=== PATIENT | male | born 1950 | race Caucasian/White ===

== ENCOUNTER 2016-05-16 08:16 | Observation (INO) | payer MEDICARE ==
[2016-05-16] MEDS: traMADol HCl 50 MG TAB PO PRN ×2 (10:24→19:18)
[2016-05-16 13:41] VITALS: BMI 26.0
[2016-05-16 15:04] LABS: #Basophils 0.1 thou/uL (0.0-0.2); #Eosinphils 0.1 thou/uL (0.0-0.7); #Lymphocytes 1.4 thou/uL (1.20-3.40); #Monocytes 1.4 thou/uL (0.11-0.59); #Neutrophils 9.8 thou/uL (1.40-6.50); %Basophils 0.5 % (0.0-1.0); %Eosinophils 1.1 % (0.0-10.0); %Lymphocytes 10.6 % (21.0-51.0); %Neutrophils 76.8 % (42.0-75.0); Hemoglobin 7.3 g/dL (14.0-18.0); Mean Corpuscular Hemoglobin 28.7 pg (27.0-31.0); Mean Corpuscular Volume 92.6 fl (80.0-94.0); Mean Platelet Volume 5.7 fL (7.4-10.4); Platelet Count 359 thou/uL (130-400); RBC Distribution Width 16.2 % (11.5-14.5); Red Blood Cell (RBC) Count 2.54 mill/uL (4.70-6.10); White Blood Cell (WBC) Count 12.8 thou/uL (4.8-10.8)
[2016-05-16] MEDS ORDERED: Furosemide 20 MG/2 ML VIAL ONE (17:25)
--- NOTE | 2016-05-16 17:56 | RAD ---
CHEST ONE VIEW 05/16/16 HISTORY: Patient has diminished breath sounds on the right per acute care nurse. COMPARISON: Chest one view 04/24/16. FINDINGS: There is some opacities in the right mid and lower lung although incompletely evaluated on this exam ination. Right costophrenic sulcus is not well evaluated. A port catheter is in place with tip poorl y seen although likely sits at the inferior SVC. Mild blunting of the left lateral costophrenic sulcus. IMPRESSION: 1. Right basilar opacities incompletely evaluated on this exam. Recommend repeat upright two vi ews after patient's transfusion. 2. Mild blunting of the left lateral costophrenic sulcus likely small effusion. Again, this lucia uld be further evaluated on an upright two view chest. 3. Evidence of prior trauma to the bilateral clavicles. POS: [facility]
[2016-05-16] MEDS ORDERED: Furosemide 20 MG/2 ML VIAL SLOW IVP SCH (18:30)
[2016-05-16 20:14] LABS: Mean Corpuscular HGB CONC 31.6 g/dL (32.0-36.0); Mean Corpuscular Hemoglobin 29.2 pg (27.0-31.0); Mean Corpuscular Volume 92.3 fl (80.0-94.0); Mean Platelet Volume 5.7 fL (7.4-10.4); Platelet Count 317 thou/uL (130-400); Red Blood Cell (RBC) Count 2.71 mill/uL (4.70-6.10); White Blood Cell (WBC) Count 13.6 thou/uL (4.8-10.8)
[2016-05-16 20:16] LABS: Hemoglobin 7.9 g/dL (14.0-18.0)
[2016-05-16] MEDS ORDERED: Mirtazapine 30 MG TAB PO SCH (21:00)
[2016-05-16] MEDS: Acetaminophen 325 MG TAB PO PRN (21:15)
[2016-05-16 21:29] LABS: Anion Gap 14 mmol/L (10-20); BUN (Urea Nitrogen) 8 mg/dL (8.4-25.7); Calc. Creatinine Clearance 154 mL/min (70-130); Calcium 7.7 mg/dL (7.8-10.44); Carbon Dioxide 17 mmol/L (23-31); Chloride 108 mmol/L (98-107); Estimated GFR-MDRD Greater than 90; Glucose 117 mg/dL (80-115); Potassium 3.6 mmol/L (3.5-5.1); Sodium 135 mmol/L (136-145)
--- NOTE | 2016-05-17 01:12 | HP ---
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 He has been discharged home with instructions to improve his weight and strength prior to jimmy motherapy. He has had a history of diabetes for years, controlled with metformin and hypertension c ontrolled with amlodipine and lovastatin, but now is on no medications except for tramadol, not eati ng well and very weak and unable to hardly get around the house, had routine laboratories done which showed him to have a hemoglobin down to 6.9 with a BUN of 8, creatinine 0.65. Had elevated liver f unctions with an AST of 58, ALT of 33. His wound appeared to be clean, but still did not have a wou nd VAC in place and was elected therefore placed in the observation [place] for transfusion of 1-2 unit s of packed cells see if this is improved in strength. He has no history of renal dysfunction, jose estive heart failure. PAST SURGICAL HISTORY: Remarkable for above-mentioned diabetes and hypertension, well controlled. ALLERGIES: He has no known allergies. SOCIAL HISTORY: He is , lives with his , drink alcohol until January still chews tobacc o. REVIEW OF SYSTEMS: HEENT: He has no headaches, dizziness, change in vision or hearing, hoarseness or dysphagia. Pulmonary: Denies cough, sputum production, pneumonia, asthma, tuberculosis. Cardio vascular: Denies chest pain, orthopnea, paroxysmal nocturnal dyspnea or edema. Gastrointestinal: Denies nausea, vomiting, diarrhea, constipation, abdominal pain. Genitourinary: Denies dysuria, he maturia, or nocturia. PHYSICAL EXAMINATION: GENERAL: The patient is an elderly white male, appears weak, but in no acute distress. VITAL SIGNS: Blood pressure of 95/58 with a pulse of 97, respirations 20, and temperature 98.1. HEENT: Pupils are equal, round, and react to light and accommodation. Sclerae pale. Conjunctivae are pale. Oral mucous membranes well dehydrated. NECK: Supple. LUNGS: Clear. CARDIAC: Regular rhythm. No gallops or murmurs. ABDOMEN: Soft, nontender with no masses or organomegaly. There appears to be some distention. The re was an open wound, previous laparotomy which was packed with no foul smelling discharge. NEUROLOGICAL: Showed no focal findings. LABORATORY: Show the above-mentioned white count, previous sodium was 132, potassium 4.3, chloride 104, bicarbonate 24, BUN is 8, creatinine 0.65. ASSESSMENT AND PLAN: Persistent recurrent weakness secondary stage IV colon cancer, unable to maint ain chemotherapy with significant anemia. We will admit to the hospital, transfused 1-2 packs cells , monitor for increased strength and hopefully monitor oral intake, able to be discharged home in 12 -24 hours.
[2016-05-17] MEDS: traMADol HCl 50 MG TAB PO PRN ×2 (01:24→09:30)
[2016-05-17] MEDS: Acetaminophen 325 MG TAB PO PRN ×2 (01:27→09:30)
[2016-05-17 05:24] LABS: Band 5 % (5-11); Eosinophils 3 % (0-10); Hemoglobin 7.3 g/dL (14.0-18.0); Lymphocytes 12 % (21-51); MDiff Complete? YES; Mean Corpuscular HGB CONC 31.9 g/dL (32.0-36.0); Mean Corpuscular Hemoglobin 29.2 pg (27.0-31.0); Mean Corpuscular Volume 91.7 fl (80.0-94.0); Mean Platelet Volume 5.7 fL (7.4-10.4); Monocytes 11 % (0-10); Neutrophil 69 % (42-75); PLT Morphology Comment Appears Adequate; Platelet Count 295 thou/uL (130-400); RBC Distribution Width 16.1 % (11.5-14.5); RBC Morphology Normal; Red Blood Cell (RBC) Count 2.51 mill/uL (4.70-6.10); White Blood Cell (WBC) Count 12.9 thou/uL (4.8-10.8)
[2016-05-17 07:16] VITALS: BP 115/73; TEMP 98.7
== END 2016-05-17 10:55 | disposition home health service (06) ==
LOC: NAV ACUTE 08:16
PROVIDERS: ADMIT Internal Medicine; ATTEND Internal Medicine
PROC: 30233N1 Transfusion of Nonautologous Red Blood Cells into Peripheral Vein, Percutaneous Approach (ICD-10-PCS; principal; 2016-05-16)
DX: C18.7 Malignant neoplasm of sigmoid colon (principal); D64.81 Anemia due to antineoplastic chemotherapy; E11.9 Type 2 diabetes mellitus without complications; I10 Essential (primary) hypertension; Z79.84 Long term (current) use of oral hypoglycemic drugs; Z79.899 Other long term (current) drug therapy
CPT/HCPCS: 36415; 36416; 36430; 71010; 80048; 85025; 86850; 86900; 86901; 87040; A4216; G0378; G0379; J1940; P9016